=== PATIENT | female | born 1995 | race Caucasian/White ===

== ENCOUNTER 2018-08-12 21:49 | Emergency (ER) | END 2018-08-13 01:17 | disposition home or self-care (01) ==

== ENCOUNTER 2018-08-19 22:35 | Emergency (ER) | END 2018-08-20 01:08 | disposition home or self-care (01) ==

== ENCOUNTER 2018-10-14 11:06 | Emergency (ER) | payer BC ==
[~2018-10-14] VITALS: Ht 165.1 cm; Wt 74.0 kg
[~2018-10-14 11:06] MED LIST: ONDA4TAB14 PO; ONDA4TAB8 PO; RANI150T35 PO
[2018-10-14 11:16] VITALS: Ht 165.1 cm; Wt 74.0 kg
[2018-10-14] MEDS ORDERED: KETOROLAC 15 MG INJ IV STA (11:43)
[2018-10-14] MEDS ORDERED: SOD CHLORIDE 0.9% 1,000 ML IV STA (11:43)
[2018-10-14] MEDS ORDERED: ONDANSETRON 4 MG INJ IV STA (11:43)
[2018-10-14] MEDS ORDERED: CEFTRIAXONE 1 GM/50 ML (PMX) 50 ML IVPB ONE (13:00)
[2018-10-14] MEDS ORDERED: POTASSIUM CHLORIDE (SR) 20 MEQ TAB PO STA (13:36)
[2018-10-14] MEDS ORDERED: CEPH-443 PO (13:59)
[2018-10-14 14:00] VITALS: BP 135/98; PULSE 104; RESP 28
--- NOTE | 2018-10-14 14:17 | ERD ---
ER Documentation Chief Complaint Chief Complaint back pain since last night HPI This is a 23-year-old female presents for intermittent left flank pain times 1 day. She has a history of recurrent pancreatitis, otherwise she has no major medical problems, she denies fever, denies recent trauma, denies nausea or vomiting. ROS All systems reviewed and are negative except as per history of present illness. Medications Home Meds Active Scripts Cephalexin* (Keflex*) 500 Mg Capsule, 500 MG PO QID for 7 Days, CAP Prov:SAMMI SANTOS MD 10/14/18 Ondansetron (Ondansetron Odt) 4 Mg Tab.rapdis, 4 MG PO Q6H PRN for NAUSEA AND/OR VOMITING, #10 TAB Prov:GEOFFREY MACIEL. 08/20/18 Ranitidine Hcl* (Zantac*) 150 Mg Tablet, 150 MG PO BID PRN for EPIGASTRIC PAIN, #30 TAB Prov:GEOFFREY MACIEL S. 08/20/18 Ondansetron Hcl* (Zofran*) 4 Mg Tablet, 4 MG PO Q6H for NAUSEA AND/OR VOMITING, #30 TAB Prov:NAIN ZAZUETA PA-C 08/13/18 Allergies Allergies: Coded Allergies: No Known Allergy (Unverified , 08/19/18) PMhx/Soc History of Surgery: Yes (tonsilectomy) Anesthesia Reaction: No Hx Neurological Disorder: No Hx Respiratory Disorders: No Hx Cardiac Disorders: No Hx Psychiatric Problems: No Hx Miscellaneous Medical Probl: Yes (pancreatitis) Hx Alcohol Use: Yes (socially) Hx Substance Use: Yes (marijuana) Hx Tobacco Use: Yes Smoking Status: Current every day smoker Physical Exam Vitals Vital Signs Date Temp Pulse Resp B/P (MAP) Pulse Ox O2 O2 Flow FiO2 Time Delivery Rate 10/14/18 104 28 135/98 98 Room Air 14:00 (110) 10/14/18 98.8 133 18 168/106 99 11:16 (126) Physical Exam Const: No acute distress Head: Atraumatic Eyes: Normal Conjunctiva ENT: Normal External Ears, Nose and Mouth. Neck: Full range of motion. No meningismus. Resp: Clear to auscultation bilaterally Cardio: Regular rate and rhythm, no murmurs Abd: Soft, non tender, non distended. Normal bowel sounds Skin: No petechiae or rashes Back: No midline or flank tenderness Ext: No cyanosis, or edema Neur: Awake and alert Psych: Normal Mood and Affect Result Diagram: 10/14/18 1205 10/14/18 1239 Results 24 hrs Laboratory Tests Test 10/14/18 12:05 10/14/18 12:39 White Blood Count 9.0 10^3/ul Red Blood Count 5.29 10^6/ul Hemoglobin 16.3 g/dl Hematocrit 48.2 % Mean Corpuscular Volume 91.1 fl Mean Corpuscular Hemoglobin 30.8 pg Mean Corpuscular Hemoglobin Concent 33.8 g/dl Red Cell Distribution Width 14.8 % Platelet Count 246 10^3/UL Mean Platelet Volume 9.5 fl Immature Granulocytes % 0.600 % Neutrophils % 78.4 % Lymphocytes % 9.9 % Monocytes % 10.6 % Eosinophils % 0.1 % Basophils % 0.4 % Nucleated Red Blood Cells % 0.0 /100WBC Immature Granulocytes # 0.050 10^3/ul Neutrophils # 7.0 10^3/ul Lymphocytes # 0.9 10^3/ul Monocytes # 1.0 10^3/ul Eosinophils # 0.0 10^3/ul Basophils # 0.0 10^3/ul Nucleated Red Blood Cells # 0.0 10^3/ul Urine Color YELLOW Urine Clarity CLOUDY Urine pH 5.0 Urine Specific Lynd 1.013 Urine Ketones 1+ mg/dL Urine Nitrite POSITIVE mg/dL Urine Bilirubin NEGATIVE mg/dL Urine Urobilinogen NEGATIVE mg/dL Urine Leukocyte Esterase 3+ Niecy/ul Urine Microscopic RBC 34 /HPF Urine Microscopic WBC > 182 /HPF Urine Bacteria MODERATE /HPF Urine Mucus FEW /HPF Urine Hemoglobin 2+ mg/dL Urine Glucose NEGATIVE mg/dL Urine Total Protein 2+ mg/dl Sodium Level 136 mmol/L Potassium Level 3.1 mmol/L Chloride Level 97 mmol/L Carbon Dioxide Level 26 mmol/L Anion Gap 13 Blood Urea Nitrogen 5 mg/dl Creatinine 0.51 mg/dl Est Glomerular Filtrat Rate mL/min > 60 mL/min Glucose Level 86 mg/dl Calcium Level 8.8 mg/dl Total Bilirubin 1.2 mg/dl Direct Bilirubin 0.00 mg/dl Indirect Bilirubin 1.2 mg/dl Aspartate Amino Transf (AST/SGOT) 34 IU/L Alanine Aminotransferase (ALT/SGPT) 20 IU/L Alkaline Phosphatase 105 IU/L Total Protein 7.2 g/dl Albumin 4.0 g/dl Globulin 3.20 g/dl Albumin/Globulin Ratio 1.25 Lipase 63 U/L Current Medications Medications Dose Sig/Sunita Start Time Status Last (Trade) Ordered Route PRN Stop Time Admin Dose Reason Admin Sodium 1,000 ml @ Q1H STAT 10/14/18 DC 10/14/18 Chloride 1,000 mls/hr IV 11:43 12:48 10/14/18 12:42 Ondansetron 4 mg ONCE STAT 10/14/18 DC 10/14/18 HCl (Zofran IV 11:43 12:48 Inj) 10/14/18 11:48 Ketorolac 15 mg ONCE STAT 10/14/18 DC 10/14/18 Tromethamine IV 11:43 12:48 (Toradol) 10/14/18 11:48 Ceftriaxone 50 ml @ ONCE ONCE 10/14/18 DC 10/14/18 Sodium 100 mls/hr IVPB 13:00 13:13 10/14/18 13:29 Potassium 40 meq ONCE STAT 10/14/18 DC 10/14/18 Chloride PO 13:36 14:02 (Klor-Con 20) 10/14/18 13:39 Procedures/MDM This is a 23-year-old female presents for relation of intermittent left flank pain. She is noted to be tachycardic, per patient she states that her heart rate is is like this, her urinalysis was positive for pyuria, and was also nitrite positive, but most likely pyelonephritis. She had no peritoneal signs on abdominal exam, less likely intra-abdominal pathology such as appendicitis or diverticulitis. Patient will be discharged home on Keflex, also noted mildly low potassium, advised dietary modifications. At discharge she was in no acute distress. EKG: Rate/Rhythm: simus tachycardia QRS, ST, T-waves: No changes consistent w/ acute ischemia Impression: No evidence of ischemia or arrhythmia Departure Diagnosis: Primary Impression: Back pain Back pain location: low back pain Chronicity: unspecified Back pain laterality: unspecified Sciatica presence: unspecified whether sciatica present Qualified Codes: M54.5 - Low back pain Additional Impressions: Pyelonephritis Hypokalemia Condition: Stable Patient Instructions: Pyelonephritis, Female (Adult) Additional Instructions: Call your primary care doctor TOMORROW for an appointment during the next 2-3 days.See the doctor sooner or return here if your condition worsens before your appointment time. SAMMI SANTOS MD Oct 14, 2018 14:17
== END 2018-10-14 14:38 | disposition home or self-care (01) ==
LOC: E/R 11:06
DX: M54.5 Low back pain (principal); N12 Tubulo-interstitial nephritis, not specified as acute or chronic; E87.6 Hypokalemia; R40.2252 Coma scale, best verbal response, oriented, at arrival to emergency department; R40.2362 Coma scale, best motor response, obeys commands, at arrival to emergency department; R40.2142 Coma scale, eyes open, spontaneous, at arrival to emergency department
CPT/HCPCS: 80053; 81001; 83690; 85025; 87086; 93005; 96374; 96375; 99284; J0696; J1885; J2405; J7030